=== PATIENT | female | born 2000 | race Caucasian/White ===

== ENCOUNTER 2020-04-23 21:30 | Emergency (ER) | payer OTHER, SELFPAY ==
[2020-04-23 21:39] VITALS: BP 117/60; PULSE 97; RESP 16; TEMP 35.7; O2SAT 98; BMI 18.6
== END 2020-04-24 01:06 | disposition left against medical advice (07) ==
PROVIDERS: Emergency Provider Emergency Medicine
DX: R10.9 Unspecified abdominal pain (principal)
CPT/HCPCS: 99281; 99282